=== PATIENT | male | born 1980 | race American Indian/Alaskan Native ===

== ENCOUNTER 2022-02-08 09:38 | Emergency (ER) | payer SELFPAY ==
[2022-02-08 10:08] VITALS: BP 139/70
--- NOTE | 2022-02-08 10:53 | XRay Report ---
CHEST 2 VIEWS INDICATION / CLINICAL INFORMATION: cough. COMPARISON: None available. FINDINGS: SUPPORT DEVICES: None. HEART / MEDIASTINUM: No significant abnormality. LUNGS / PLEURA: No significant pulmonary or pleural abnormality. No pneumothorax. ADDITIONAL FINDINGS: None IMPRESSION: 1. No acute chest process. Signer Name: Miguel Jaimes MD Signed: 02/08/2022 10:49 AM Workstation Name: [email or web address]
--- NOTE | 2022-02-08 11:37 | Emergency Department Report ---
Minor Respiratory - HPI Chief Complaint: Upper Respiratory Infection Stated Complaint: COUGHING BLOODY MUCUS Time Seen by Provider: 02/08/22 11:32 ED Review of Systems ROS: Stated complaint: COUGHING BLOODY MUCUS Other details as noted in HPI Comment: All other systems reviewed and negative ED Past Medical Hx - Past Medical History Previous Medical History?: Yes Additional medical history: BRONCHITIS - Family History Family history: no significant - Social History Smoking Status: Never Smoker Substance Use Type: None - Medications Home Medications: Home Medications Medication Instructions Recorded Confirmed Last Taken Type Benzonatate [Tessalon Perles] 100 mg PO Q12H PRN #20 capsule 02/08/22 Unknown Rx Famotidine [Pepcid] 20 mg PO DAILY #30 tablet 02/08/22 Unknown Rx Minor Respiratory Exam - Exam General: Vital signs noted. No distress. Alert and acting appropriately. HEENT: Yes Moist Mucous Membranes, No Pharyngeal Erythema, No Pharyngeal Exudates, No Rhinorrhea, No Conjuctival Injection, No Frontal Tenderness, No Maxillary Tenderness Ear: Neither TM Bulge, Neither TM Erythema, Neither EAC Pain, Neither EAC Discharge Neck: Yes Supple, No Adenopathy Lungs: Yes Good Air Exchange, No Wheezes, No Ronchi, No Stridor, No Cough, No Labored Respirations, No Retractions, No Use of Accessory Muscles, No Other Abnormal Lung Sounds Heart: Yes Regular, No Murmur Abdomen: Yes Normal Bowel Sounds, No Tenderness, No Peritoneal Signs Skin: No Rash, No Edema Neurologic: Alert and oriented, no deficits. Musculoskeletal: Unremarkable. ED Course Vital Signs 02/08/22 10:06 Temperature 98.7 F Pulse Rate 79 Respiratory 20 Rate Blood Pressure 139/70 [Right] O2 Sat by Pulse 97 Oximetry ED Medical Decision Making - Radiology Data Radiology results: report reviewed, image reviewed Critical care attestation.: If time is entered above; I have spent that time in minutes in the direct care of this critically ill patient, excluding procedure time. ED Disposition Clinical Impression: Cough Disposition: 01 HOME / SELF CARE / HOMELESS Is pt being admited?: No Does the pt Need Aspirin: No Condition: Stable Instructions: Cough, Adult, [id number] Additional Instructions: AVOID CIG SMOKE MEDS ORDERED TODAY FOLLOW UP WITH PCP IF PROBLEMS PERSIST REFERRAL TO PCP BELOW Referrals: HAO TOMLINSON MD [Staff Physician] - 3-5 Days Time of Disposition: 11:37
== END 2022-02-08 12:19 | disposition home or self-care (01) ==
LOC: ED 09:38
DX: R05.9 Cough, unspecified (principal); F17.200 Nicotine dependence, unspecified, uncomplicated; Z79.899 Other long term (current) drug therapy
CPT/HCPCS: 71046; 99283